=== PATIENT | male | born 1965 | race Caucasian/White ===

== ENCOUNTER 2022-08-10 09:51 | Outpatient (CLI) | payer OTHER, SELFPAY ==
[2022-08-10 14:39] LABS: Chloride* 103 mmol/L (96-114); Potassium* 4.6 mmol/L (3.6-5.1); Sodium* 136 mmol/L (135-149)
[2022-08-10 14:42] LABS: Blood Urea Nitrogen* 19 mg/dL (7-30); Carbon Dioxide* 26 mmol/L (20-32); Cholesterol* 189 mg/dL (90-199); Creatinine* 0.7 mg/dL (0.5-1.5); Estimated Glomerular Filt Rate 106 ml/min; Glucose* 208 mg/dL (60-115)
[2022-08-10 14:43] LABS: Calcium* 9.4 mg/dL (8.4-10.6); HDL Cholesterol* 53 mg/dL (>=40); LDL Cholesterol Calculated 115 mg/dL (<100); Triglycerides* 107 mg/dL (40-149)
== END 2022-08-10 09:52 | disposition home or self-care (01) ==
PROVIDERS: PCP Internal Medicine; Visit Provider Family Medicine
DX: E11.9 Type 2 diabetes mellitus without complications (principal)
CPT/HCPCS: 80048; 80061

== ENCOUNTER 2023-12-26 08:31 | Outpatient (CLI) | payer OTHER, SELFPAY | END 2023-12-26 08:32 | disposition home or self-care (01) | PROVIDERS: PCP Family Medicine; Visit Provider Family Medicine | DX: E11.22 Type 2 diabetes mellitus with diabetic chronic kidney disease (principal); N52.9 Male erectile dysfunction, unspecified; Z79.4 Long term (current) use of insulin; Z12.5 Encounter for screening for malignant neoplasm of prostate; Z13.0 Encounter for screening for diseases of the blood and blood-forming organs and certain disorders involving the immune mechanism | CPT/HCPCS: 80048; 85025; G0103 ==

== ENCOUNTER 2024-09-04 12:13 | Outpatient (CLI) | payer OTHER, SELFPAY | END 2024-09-04 12:14 | disposition home or self-care (01) | LOC: FBOREF 12:13 | PROVIDERS: PCP Family Medicine; Visit Provider Family Medicine | DX: E11.9 Type 2 diabetes mellitus without complications (principal); Z79.4 Long term (current) use of insulin | CPT/HCPCS: 80061 ==

== ENCOUNTER 2024-10-30 12:39 | Emergency (ER) | payer OTHER, SELFPAY ==
[2024-10-30 12:48] VITALS: BP 153/95; PULSE 72; RESP 18; TEMP 35.6; O2SAT 97; BMI 31.0
--- NOTE | 2024-10-30 12:50 | ED.GENADULT ---
HPI - General Adult General Date Seen: 10/30/24 Chief complaint: Extremity Pain/Injury, Lower Stated complaint: L ankle injury Time Seen by Provider: 10/30/24 12:41 History of Present Illness HPI narrative: Patient is a 59-year-old male here by ambulance for evaluation of a left ankle injury. He says he slipped on the ice, says he did fall but that his only other injury is to his pride. He has pain and swelling in the left ankle, has not tried to put any weight on it. Had fentanyl in the ambulance, denies and the need for anything else right now. He is not anticoagulated, he is an insulin-dependent diabetic, type 2. He denies head or neck, back chest or abdominal injury. No numbness or loss of function foot. Denies any pain in the knee or hip. Related Data Home Medications ?Medication ?Instructions ?Recorded ?Confirmed lancets (Accu-Chek Softclix 03/17/22 09/04/24 Lancets) Previous Rx's ?Medication ?Instructions ?Recorded blood-glucose meter,continuous #1 ea 05/11/22 (Dexcom G6 Cocoa Bean Roaster) blood sugar diagnostic (Accu-Chek #100 ea 07/16/23 Guide test strips) pen needle, diabetic 31 gauge x #50 ea 07/16/23/ (BD Ultra-Fine Mini Pen Needle) gabapentin 300 mg capsule 300 - 600 mg (1 - 2 x 300 mg) PO 12/26/23 QHS PRN pain #180 caps metformin 500 mg tablet,extended 1,000 mg (2 x 500 mg) PO QDAY #180 12/26/23 release 24 hr tabs vardenafil 20 mg tablet 20 mg PO QDAY PRN sexual activity 02/06/24 #10 tabs insulin lispro 100 unit/mL 15 - 20 sliding scale dose subcut 09/04/24 subcutaneous pen (Humalog KwikPen USEASDIRECTD #30 mL (U-100) Insulin) insulin lispro protamine-lispro 40 - 50 unit (0.4 - 0.5 mL) subcut 09/04/24 100 unit/mL (75-25) subcutaneous BID #45 mL pen (Humalog Mix 75-25 KwikPen) blood-glucose sensor (Dexcom G6 #9 ea 10/22/24 Sensor device) blood-glucose transmitter (Dexcom #1 ea 10/29/24 G6 Transmitter device) Allergies Allergy/AdvReac Type Severity Reaction Status Date / Time No Known Drug Allergies Allergy Verified 09/04/24 10:52 [facility] Medical History (Updated 08/01/23 @ 00:16 by Timmy Doyle MD) Type 2 diabetes mellitus, with long-term current use of insulin ?E11.9 - Type 2 diabetes mellitus without complications (ICD-10) ?Z79.4 - FDC (current) use of insulin (ICD-10) Erectile dysfunction ?N52.9 - Male erectile dysfunction, unspecified (ICD-10) Diabetic neuropathy ?E11.40 - Type 2 diabetes mellitus with diabetic neuropathy, unspecified (ICD-10) Surgical History (Updated 08/12/22 @ 00:02 by Timmy Doyle MD) History of thumb surgery ?Z98.890 - Other specified postprocedural states (ICD-10) Social History (Updated 12/26/23 @ 12:06 by Peyton Ye ~ [facility], [facility]) Narrative: Does not use illicit drugs Former smoker Single, no kids, self-employed construction, no alcohol What is your current living situation?: I presently have a place to live Problems where you live: declined to answer In the past 12 months, utilities in danger of being shut off: no In past 12 months, lack of transportation kept you from medical appts, meetings, work, or getting things needed for daily living: no In the past 12 mos, have been you worried that your food would run out before you had money to buy more?: declined to answer In the past 12 mos, the food you bought just didn't last and you didn't have money to buy more?: declined to answer Smoking Status: Former smoker Do you use any of these nicotine containing products: None Second hand tobacco smoke exposure: No How often do you have a drink containing alcohol: never How often do you have six or more drinks on one occasion: Never AUDIT-C Alcohol total score: 0 Non-prescribed substance use: denies use How often does anyone, including family, friends and others, physically hurt you: decline to answer How often does anyone, including family, friends and others, insult or talk down to you: decline to answer How often does anyone, including family, friends and others, threaten you with harm: decline to answer How often does anyone, including family, friends and others, scream or curse at you: decline to answer Exam Narrative: Exam Narrative: Vital signs reviewed In general, alert, nontoxic male. He looks comfortable, lying the cart. Head: Normocephalic atraumatic. Neck: Nontender to palpation. Heart: Regular rate and rhythm. Lungs: Clear, no increased work of breathing. Abdomen: Soft nontender. Extremities: He has a swelling of the left distal tibial a proximal to the ankle joint and that seems to be primarily were tenderness is but he says it is hard to differentiate between that and the ankle joint itself. He does have some tenderness of the proximal fibula on exam although does not complain of pain there. He denies any acute knee pain or tenderness. No effusion. Neurologic: He is alert, conversant, appropriate. Const: Vital Signs, click to edit/add: Vital Signs - 24 hr 10/30/24 12:48 10/30/24 15:52 Temperature 96.0 F L Pulse Rate [Left P ulse Oximeter] 72 Respiratory Rate 18 Blood Pressure 164/100 H Blood Pressure [Le ft Upper Arm] 153/95 H Pulse Oximetry 97 Oxygen Delivery Me thod Room Air Course Course ED Course: X-rays by my review showed a comminuted fracture of the distal tibial as well as the proximal fibula. Radiology read reviewed, concurs and notes probable extension into talotibial joint. I consulted by phone with Orthopedics, they recommend transfer to a trauma facility because of the extension into the joint. I have reviewed this with the patient and his girlfriend, they request transfer to [place] if possible, call to [place] [facility] placed at 2:15., they are reviewing. His pain is starting to return so I have ordered another 4 mg of morphine. Reevaluation(s) Time of Reevaluation #1: 15:16 Reevaluation #1: Still awaiting a call back from [place], ptGloria das. Time of Reevaluation #2: 16:31 Reevaluation #2: Patient was given another dose of morphine 4 mg IV. We did hear back from [facility] about 4 with acceptance to their ER. We are awaiting transport at this time. I placed a posterior splint using Ortho Glass and 3 Jigar wraps. CMS remains intact. Pain controlled. I also ordered maintenance fluids, lactated Ringer set at 75 mL an hour. Discussed with him I suspect that nothing will happen with this until tomorrow once he is at [place] he can eat, but I have kept him NPO through his time at our facility. Vital Signs Vital signs: Initial Vital Signs Temperature 96.0 F L 10/30/24 12:48 Temperature Source Temporal Artery Scan 10/30/24 12:48 Pulse Rate 72 10/30/24 12:48 Pulse Rhythm Regular 10/30/24 12:48 Pulse Strength 3+ Normal 10/30/24 12:48 Respiratory Rate 18 10/30/24 12:48 Blood Pressure 153/95 H 10/30/24 12:48 Blood Pressure Mean 114 H 10/30/24 12:48 Blood Pressure Position Sitting 10/30/24 12:48 Pulse Oximetry 97 10/30/24 12:48 Oxygen Delivery Method Room Air 10/30/24 12:48 Vital Signs Temperature 96.0 F L 10/30/24 12:48 Pulse Rate 72 10/30/24 12:48 Respiratory Rate 18 10/30/24 12:48 Blood Pressure 153/95 H 10/30/24 12:48 Pulse Oximetry 97 10/30/24 12:48 Oxygen Delivery Method Room Air 10/30/24 12:48 Temperature 96.0 F L 10/30/24 12:48 Pulse Rate 72 10/30/24 12:48 Respiratory Rate 18 10/30/24 12:48 Blood Pressure 164/100 H 10/30/24 15:52 Pulse Oximetry 97 10/30/24 12:48 Oxygen Delivery Method Room Air 10/30/24 12:48 Medications Administered Medications: Discontinued Medications Generic Name Dose Route Start Last Admin Trade Name Freq PRN Reason Stop Dose Admin Morphine Sulfate 4 mg 10/30/24 14:15 10/30/24 14:23 Morphine 4 Mg/Ml Inj IVP 10/30/24 14:16 4 mg ONCE ONE Administration Medical Decision Making Imaging Data X-ray tib-fib: Attestation: I have reviewed the pertinent imaging results. Radiologist's impression: Patient: Timmy Tafoya MR#: [id number] : 1965 Acct:[id number] Loc: ED Service Date: 10/30/[address]: Ordering Physician: Cierra Bonds M.D. Date of Service: 10/30/24 Procedure(s): XR tibia fibula LT 2V Accession Number(s): [id number] cc: Cierra Bonds M.D.; Timmy Doyle M.D.~ For Patients: As a result of the Cures Act, medical imaging exams and procedure reports are released immediately into your electronic medical record. You may view this report before your referring provider. If you have questions, please contact your health care provider. Indication: ankle injury, prox fib tenderness Fall on ice Technique: Two views of the left tibia and fibula. Four total images. Comparison: None. Findings: Moderately comminuted and mildly displaced distal tibial meta diaphyseal fracture with likely extension to the tibiotalar joint. Mildly comminuted and moderately displaced proximal fibular diaphyseal fracture. Mild vascular calcification. Impression: Moderately comminuted and mildly displaced distal tibial meta diaphyseal fracture with likely extension to the tibiotalar joint. Mildly comminuted and moderately displaced proximal fibular diaphyseal fracture. Dictated by Demond Dowd MD @ 10/30/2024 1:39:33 PM Discharge Plan Discharge Prescriptions: No Action (DME) lancets [Accu-Chek Softclix Lancets] Misc See Rx Instructions .Route Rx Instructions: As directed (DME) pen needle, diabetic [BD Ultra-Fine Mini Pen Needle] 31 gauge x 3/16 needle See Rx Instructions .ROUTE .MEDSUPPLY Qty: 50 5RF Rx Instructions: Injects twice a day (DME) Accu-Chek Guide test strips Strip See Rx Instructions .Route Qty: 100 3RF Rx Instructions: test blood sugar 2 times daily metformin 500 mg tablet extended release 24 hr 1,000 mg PO QDAY Qty: 180 3RF gabapentin 300 mg capsule 300 - 600 mg PO QHS PRN (Reason: pain) Qty: 180 3RF (DME) Dexcom G6 Cocoa Bean Roaster Misc See Rx Instructions .Route Qty: 1 0RF Rx Instructions: As directed vardenafil 20 mg tablet 20 mg PO QDAY PRN (Reason: sexual activity) Qty: 10 5RF insulin lispro [Humalog KwikPen Insulin] 100 unit/mL insulin pen 15 - 20 sliding scale dose subcut USEASDIRECTD Qty: 30 3RF Rx Instructions: Use when blood sugar > 250 insulin lispro protamin-lispro [Humalog Mix 75-25 KwikPen] 100 unit/mL (75-25) insulin pen 40 - 50 unit subcut BID Qty: 45 3RF (DME) Dexcom G6 Sensor Device See Rx Instructions .Route Qty: 9 1RF Rx Instructions: Change every 10 days (DME) Dexcom G6 Transmitter Device See Rx Instructions .Route Qty: 1 3RF Rx Instructions: Change every 3 months Follow Up/Referrals: Timmy Doyle MD [Primary Care Provider] -
[2024-10-30] MEDS: MORPHINE 4 MG/ML INJ IVP ×3 (14:23→18:21)
[2024-10-30 15:52] VITALS: BP 164/100
--- NOTE | 2024-10-30 16:03 | ED.NURSE ---
Elizabeth has been accepted to [place] ED. At this time he continues to decline changing into a hospital gown. He has agreed to change into his own shorts if his girlfriend returns to the ER prior to EMS arrival.
--- NOTE | 2024-10-30 17:56 | ED.NURSE ---
EMS was paged at 1558 for transport. Was told that a crew would be here at 1715. At 1730 called dispatch for ETA on EMS, was told that it could be 1815 as the ambulance crew goes off shift. Dispatch was asked to check on other services for transport per care team request.
[2024-10-30 18:23] VITALS: BP 140/92; PULSE 87; O2SAT 98
--- NOTE | 2024-10-30 18:25 | ED.NURSE ---
EMS has arrived for transport.
== END 2024-10-30 18:28 | disposition short-term general hospital (02) ==
LOC: ED 13:56
PROVIDERS: Emergency Provider Emergency Medicine; PCP Family Medicine
DX: S82.252A Displaced comminuted fracture of shaft of left tibia, initial encounter for closed fracture (principal); S82.452A Displaced comminuted fracture of shaft of left fibula, initial encounter for closed fracture; W00.0XXA Fall on same level due to ice and snow, initial encounter
CPT/HCPCS: 73590; 96374; 96375; 99284; 99285; J2270

== ENCOUNTER 2024-10-30 18:18 | Outpatient (CLI) | payer OTHER, SELFPAY | END 2024-10-30 18:19 | disposition home or self-care (01) | LOC: AMB 11-03 12:01 | PROVIDERS: PCP Family Medicine; Visit Provider Emergency Medicine Emergency Medical Services | DX: S89.92XA Unspecified injury of left lower leg, initial encounter (principal); W00.0XXA Fall on same level due to ice and snow, initial encounter; Y92.63 Factory as the place of occurrence of the external cause | CPT/HCPCS: A0425; A0427 ==

== ENCOUNTER 2025-02-18 09:20 | Outpatient (CLI) | payer OTHER, SELFPAY | END 2025-02-18 09:21 | disposition home or self-care (01) | PROVIDERS: PCP Family Medicine; Visit Provider Family Medicine | DX: E11.9 Type 2 diabetes mellitus without complications (principal); Z12.5 Encounter for screening for malignant neoplasm of prostate | CPT/HCPCS: 80048; G0103 ==

== ENCOUNTER 2025-08-11 08:02 | Outpatient (CLI) | payer OTHER, SELFPAY | END 2025-08-11 08:03 | disposition home or self-care (01) | PROVIDERS: PCP Family Medicine; Visit Provider Family Medicine | DX: E11.9 Type 2 diabetes mellitus without complications (principal); Z79.4 Long term (current) use of insulin | CPT/HCPCS: 82043; 82570 ==